=== PATIENT | female | born 1995 | race Two or more races ===

== ENCOUNTER 2023-05-11 19:23 | Emergency (ER) | payer OTHER ==
[2023-05-11 19:31] VITALS: BP 137/85; PULSE 70; RESP 18; TEMP 98.7; BMI 24.9
[2023-05-11] MEDS ORDERED: ACETAMINOPHEN 325 MG TABLET (FP) ONE (20:19)
[2023-05-11] MEDS ORDERED: ACETAMINOPHEN 325 MG TABLET (FP) PO ONE (20:21)
== END 2023-05-11 21:04 | disposition home or self-care (01) ==
LOC: JERFT 19:23
DX: S39.012A Strain of muscle, fascia and tendon of lower back, initial encounter (principal); M25.512 Pain in left shoulder; M54.6 Pain in thoracic spine; W10.8XXA Fall (on) (from) other stairs and steps, initial encounter; Y92.813 Airplane as the place of occurrence of the external cause
CPT/HCPCS: 73030-TC-LT-FY; 99283-25

== ENCOUNTER 2024-07-17 11:00 | Emergency (ER) | payer OTHER ==
[2024-07-17 11:08] VITALS: BP 116/72; PULSE 72; RESP 16; TEMP 98.4; BMI 23.9
[2024-07-17] MEDS ORDERED: BACITRACIN ZINC 15 GM TUBE TOPICAL OINTMENT ONE (11:31)
[2024-07-17 15:17] LABS: HIV INTERPRETATION NEGATIVE (NEGATIVE)
== END 2024-07-17 14:19 | disposition home or self-care (01) ==
LOC: JERFT 11:00
DX: S60.445A External constriction of left ring finger, initial encounter (principal); W49.04XA Ring or other jewelry causing external constriction, initial encounter
CPT/HCPCS: 36415; 86803; 87389; 99283-25

== ENCOUNTER 2024-11-18 09:41 | Emergency (ER) | payer OTHER ==
[2024-11-18 09:52] VITALS: BP 107/69; PULSE 79; RESP 18; TEMP 98.1; BMI 24.7
[2024-11-18 10:45] LABS: URINE APPEARANCE CLEAR; URINE BILIRUBIN NEGATIVE (NEGATIVE); URINE COLOR YELLOW; URINE GLUCOSE (UA) NEGATIVE (NEGATIVE); URINE KETONE TRACE (NEGATIVE); URINE LEUK ESTERASE NEGATIVE (NEGATIVE); URINE NITRITE NEGATIVE (NEGATIVE); URINE PROTEIN NEGATIVE (NEGATIVE); URINE UROBILINOGEN 0.2 mg/dL (0.2-1.0)
[2024-11-18 10:57] LABS: HCG,QUALITATIVE URINE Positive
[2024-11-18 11:42] LABS: ABSOLUTE IMMATURE GRANULOCYTES 0.02 x10^3/uL (0.0-0.031); BASOPHILS # 0.03 x10^3/uL (0.01-0.08); EOSINOPHIL % 1.6 % (0.7-5.8); EOSINOPHILS # 0.09 x10^3/uL (0.04-0.36); HEMATOCRIT 38.2 % (34.1-44.9); HEMOGLOBIN 12.8 g/dL (11.2-15.7); MCHC 33.5 g/dl (32.2-35.5); MEAN CELL VOLUME 93.4 fl (79.4-94.8); MEAN PLT VOLUME 10.9 fl (9.4-12.3); MONOCYTE # 0.31 x10^3/uL (0.24-0.86); MONOCYTE % 5.5 % (4.7-12.5); PLATELET COUNT 209 x10^3/uL (182-369)
[2024-11-18 12:06] LABS: POTASSIUM 4.3 mmol/L (3.5-5.1)
[2024-11-18 12:12] LABS: ALBUMIN 3.6 g/dl (3.4-5.0); BLOOD UREA NITROGEN 12.4 mg/dL (7-18); CALCIUM 9.5 mg/dL (8.5-10.1)
[2024-11-18 12:15] LABS: CREATININE 0.9 mg/dL (0.55-1.3)
[2024-11-18 12:16] LABS: BILIRUBIN,TOTAL 0.6 mg/dL (0.2-1); TOT PROT 7.2 g/dl (6.4-8.2)
[2024-11-18 13:11] LABS: HCV DIAGNOSTIC IN-HOUSE W/RFLX NON-REACTIVE (NONREACTIVE); HIV INTERPRETATION NEGATIVE (NEGATIVE)
== END 2024-11-18 13:01 | disposition home or self-care (01) ==
LOC: JERFT 09:41
DX: O26.891 Other specified pregnancy related conditions, first trimester (principal); R10.30 Lower abdominal pain, unspecified; Z3A.01 Less than 8 weeks gestation of pregnancy
CPT/HCPCS: 36415; 76817-TC; 80053; 81003; 84702; 84703; 85025; 86803; 86850; 86900; 86901; 87389; 99284-25